=== PATIENT | female | born 1980 | race Two or more races ===

== ENCOUNTER 2017-05-17 02:53 | Emergency (ER) | payer BC ==
[~2017-05-17] VITALS: Ht 157.5 cm; Wt 72.7 kg
[~2017-05-17 02:53] MED LIST: APRESOLINE10 MG PO; CINNAMON500 MG PO; CYMBALTA60 MG PO; HYDROXYZINE HCL10 MG PO; MULTIPLE VITAM1 EACH PO; PROMETHAZINE HC25 M1 PO; PROPRANOLOL HCL80 M1 PO; PROPRANOLOL HCL80 MG PO; SLEEP AID50 MG/30 M PO; TYLENOL EXTRA500 MG PO
[2017-05-17] MEDS ORDERED: FIORICET 50-301 EACH PO (05:08)
[2017-05-17 05:15] VITALS: BP 119/74
== END 2017-05-17 05:23 | disposition home or self-care (01) ==
LOC: EME 02:53
DX: R51 Headache (principal); R11.0 Nausea; H53.149 Visual discomfort, unspecified
CPT/HCPCS: 99281; 99284; J0595; J1200; J2765; J7030

== ENCOUNTER 2018-03-04 10:14 | Day surgery (SDC) | payer BC ==
[~2018-03-04] VITALS: Ht 154.9 cm; Wt 78.0 kg
[~2018-03-04 10:14] MED LIST changes: +FIORICET 50-301 EACH PO; +FLOMAX0.4 MG PO; +LORCET 5-325 M1 EACH PO; +RESTORIL15 MG PO; +TYLENOL WITH C1 EACH PO; +ZOFRAN ODT8 MG PO; +ZOLOFT50 MG PO
[2018-03-04 10:53] VITALS: BP 149/87
[2018-03-04 16:22] VITALS: BP 139/77
[2018-03-04 17:27] VITALS: BP 130/68
== END 2018-03-04 17:37 | disposition home or self-care (01) ==
LOC: SDC 10:14
DX: N13.2 Hydronephrosis with renal and ureteral calculous obstruction (principal); I10 Essential (primary) hypertension; E03.9 Hypothyroidism, unspecified; Z88.2 Allergy status to sulfonamides
CPT/HCPCS: 74420; C2625; J0690; J1100; J2250; J2405; J2765; J3010